=== PATIENT | male | born 1975 | race Caucasian/White ===

== ENCOUNTER 2024-01-10 11:55 | Inpatient (IN) | payer SELFPAY ==
[2024-01-10] VITALS (46 sets, daily range): BP systolic 103–138; BP diastolic 66–83; PULSE 81–110; RESP 12–37; TEMP 36.6–36.8; O2SAT 91–108; BMI 19.9; BMI 19.4
--- NOTE | 2024-01-10 12:08 | XR_ITS ---
The [address] [address] Patient Name: MEHNAZ CAMACHO MRN: [id number] date: 1975 Sex: M Assigned Patient Location: ER Current Patient Location: ER Accession/Order Number: [id number] Exam Date: 01/10/2024 12:45 Report Date: 01/10/2024 13:16 At the request of: AMPARO CHARLES Procedure: XR chest 1V EXAMINATION: XR chest 1V 01/10/2024 10:15 AM PST HISTORY: SOB TECHNIQUE: Single frontal view of the chest acquired. COMPARISONS: None. FINDINGS: Lines/tubes/other: None. Heart and mediastinum: The heart and the mediastinum are within normal limits for technique. Bones: No acute osseous abnormality. Lungs: Patchy right basilar opacification and streaky left basilar opacification. No pulmonary edema. Pleura: There is no significant pleural effusion or pneumothorax. Other: None. XR/XR chest 1V IMPRESSION: Bibasilar opacification suspect for aspiration and/or pneumonia. Recommend follow-up radiograph in 4-6 weeks, allowing sufficient time after appropriate therapy to evaluate for radiographic improvement/resolution. Electronically authenticated by: RAYMUNDO BELLO Date: 01/10/2024 13:16
--- NOTE | 2024-01-10 12:08 | ECG_ITS ---
The [facility] Test Date: 2024-01-10 Pat Name: MEHNAZ CAMACHO Department: Room: - Gender: Male Personal Security Specialist: : 1975 Requested By: Cristóbal Reyna Order Number: [id number] Reading MD: MARY GEORGES Measurements Intervals Coker Rate: 84 P: 110 AL: 158 QRS: 94 QRSD: 88 T: 94 QT: 368 QTc: 409 Interpretive Statements 1100 Sinus rhythm 4068 Nonspecific Twave abnormality 7102 Moderate right axis deviation 0101 Possible arm leads reversed, check lead requested 9130 borderline ECG Electronically Signed On 01-11-2024 6:38:50 EST by MARY GEORGES
--- NOTE | 2024-01-10 12:09 | CT_ITS ---
[address] [address] Patient Name: MEHNAZ CAMACHO MRN: [id number] date: 1975 Sex: M Assigned Patient Location: ER Current Patient Location: Accession/Order Number: [id number] Exam Date: 01/10/2024 12:45 Report Date: 01/10/2024 13:04 At the request of: AMPARO CHARLES Procedure: CT head/brain wo con EXAM: CT head/brain wo con CLINICAL INDICATION: fall COMPARISON: None TECHNIQUE: Axial CT images of the brain were obtained without contrast. Coronal and sagittal reformats were obtained. Dose reduction techniques were achieved by using automated exposure control and/or adjustment of mA and/or kV according to patient size and/or use of iterative reconstruction technique. FINDINGS: No intracranial hemorrhage, extra-axial fluid collection, hydrocephalus, midline shift, or acute infarction. No other mass effect. Patent basal cisterns. No calvarial fracture. Normal soft tissues. [id number] scattered paranasal sinus mucosal thickening. Small left mastoid effusion. CT/CT head/brain wo con IMPRESSION: No acute intracranial process. Electronically authenticated by: YURIY DOMINGUEZ Date: 01/10/2024 13:04
--- NOTE | 2024-01-10 12:09 | CT_ITS ---
The [address] [address] Patient Name: MEHNAZ CAMACHO MRN: [id number] date: 1975 Sex: M Assigned Patient Location: ER Current Patient Location: ER Accession/Order Number: [id number] Exam Date: 01/10/2024 12:45 Report Date: 01/10/2024 13:05 At the request of: AMPARO CHARLES Procedure: CT cervical spine wo con EXAM: CT cervical spine wo con HISTORY: fall, generalized malaise, bruising to right side of face COMPARISON: CT head performed contemporaneously reported separately. TECHNIQUE: Axial noncontrast CT imaging of the cervical spine was performed with coronal and sagittal reformats. This CT exam was performed using one or more of the following dose reduction techniques: Automated exposure control, adjustment of the MA and/or kV according to patient size, or use of iterative reconstruction technique. FINDINGS: Alignment: No substantial subluxation. Vertebrae: Vertebral body heights are maintained. No fracture. Craniocervical junction: No focal abnormality. Degenerative changes: Small central protrusion at C4-C5 with mild canal stenosis. Otherwise no substantial degenerative change of the cervical spine. Additional Comments: Visualized portion of the upper lungs are clear. Mild atherosclerotic change. CT/CT cervical spine wo con IMPRESSION: No acute fracture or traumatic malalignment of the cervical spine. Electronically authenticated by: DALE SANTIAGO Date: 01/10/2024 13:05
--- NOTE | 2024-01-10 12:11 | ED_ITS ---
HPI - General Adult General Chief complaint: Weakness Stated complaint: WEAKNESS, ILLNESS Time Seen by Provider: 01/10/24 11:57 History of Present Illness HPI narrative: 49-year-old male presents for generalized weakness. He states that his mother, with whom he lives, wanted him checked out. He apparently has been falling recently and he is a daily alcohol drinker and has not had anything to drink since yesterday. No history of seizure or fever. He does not seem to have any specific complaints. Paramedics noted that he had abrasions on his arms and his face of varying ages. Related Data Home Medications Medication Instructions Recorded Confirmed verapamil 240 mg tablet,extended 240 mg PO .qd 01/10/24 01/10/24 release Allergies Allergy/AdvReac Type Severity Reaction Status Date / Time No Known Drug Allergies Allergy Verified 01/10/24 12:02 Review of Systems ROS Narrative A ten point review of systems is negative except as noted above. PFSH PFSH Social History Smoking status: Current every day smoker Exam Narrative Exam Narrative: Nurses note and vital signs reviewed and patient is not hypoxic. General: The patient appears well and in no apparent distress. Patient is resting comfortably on cart. Skin: Warm, dry, no pallor noted. There is no rash noted. Head: Normocephalic, large abrasion on the right side of his head lateral to the eye. Eye: Normal conjunctiva, no drainage, sclera anicteric Ears, Nose, Mouth, and Throat: oral mucosa is slightly dry. Nares patent. Cardiovascular: Regular Rate and Rhythm Respiratory: Mildly tachypneic, breath sounds are equal Back: non-tender GI: Soft and nontender and nondistended Musculoskeletal: He has abrasions on his extremities, particularly his arms. All joints seem to have full range of motion Neurological: A&O x4, normal speech Psychiatric: Cooperative Constitutional Vital Signs, click to edit/add: Last Vital Signs Temp 98.3 F 01/10/24 12:04 Pulse 93 H 01/10/24 12:04 Resp 32 H 01/10/24 12:04 BP 134/82 01/10/24 12:04 Pulse Ox 92 L 01/10/24 12:04 O2 Del Method Room Air 01/10/24 12:04 Course Vital Signs Vital signs: Vital Signs Temperature 98.3 F 01/10/24 12:04 Pulse Rate 93 H 01/10/24 12:04 Respiratory Rate 32 H 01/10/24 12:04 Blood Pressure 134/82 01/10/24 12:04 Pulse Oximetry 92 L 01/10/24 12:04 Oxygen Delivery Method Room Air 01/10/24 12:04 Temperature 98.3 F 01/10/24 12:04 Pulse Rate 93 H 01/10/24 12:04 Respiratory Rate 32 H 01/10/24 12:04 Blood Pressure 134/82 01/10/24 12:04 Pulse Oximetry 92 L 01/10/24 12:04 Oxygen Delivery Method Room Air 01/10/24 12:04 Medical Decision Making MDM Narrative Medical decision making narrative: The patient is found to be hyponatremic with a positive COVID test. Chest x-ray is also suggestive of aspiration. Cultures are obtained as well as lactic acid level and procalcitonin and after discussing the case with Dr. Harrington we have elected to place the patient on Zosyn. He is being admitted and findings are discussed with the patient. He is at risk for alcohol withdrawal. Differential Diagnosis Differential Diagnosis: Acute kidney injury, hyponatremia, alcoholism Lab Data Lab results reviewed: Yes I reviewed the patient's lab results Labs: Lab Results 01/10/24 01/10/24 Range/Units 12:10 12:15 WBC 12.1 H (4.0-11.0) 10^3/uL RBC 3.87 L (4.70-6.10) 10^6/uL Hgb 13.2 L (14.0-18.0) g/dL Hct 35.2 L (42.0-54.0) % MCV 91.0 (80.0-94.0) fL MCH 34.1 H (25.9-34.0) pg MCHC 37.5 H (29.9-35.2) g/dL RDW 10.9 L (11.0-15.0) % Plt Count 211 (150-450) 10^3/uL MPV 10.9 (9.5-13.5) fL Neut % (Auto) 82.9 H (43.0-75.0) % Lymph % (Auto) 6.7 L (20.5-60.0) % Bulloch % (Auto) 9.4 (1.7-12.0) % Eos % (Auto) 0.1 L (0.9-7.0) % Baso % (Auto) 0.2 (0.2-2.0) % Neut # (Auto) 10.0 H (1.4-6.5) 10^3/uL Lymph # (Auto) 0.8 L (1.2-3.8) 10^3/uL Bulloch # (Auto) 1.1 H (0.3-0.8) 10^3/uL Eos # (Auto) 0.0 (0.0-0.7) 10^3/uL Baso # (Auto) 0.0 (0.0-0.1) 10^3/uL Abs Immat Gran (auto) 0.08 H (0.00-0.03) 10^3/uL Imm/Tot Granulo (auto) 0.7 H (0.0-0.5) % Sodium 115 L* (136-145) mmol/L Potassium 2.6 L* (3.5-5.1) mmol/L Chloride 78 L* (98-107) mmol/L Carbon Dioxide 25.9 (21.0-32.0) mmol/L Anion Gap 13.7 BUN 2.0 L (7.0-18.0) mg/dL Creatinine 0.40 L (0.70-1.30) mg/dL Est GFR ( Amer) >60 (>=60) Est GFR (Non-Af Amer) >60 (>=60) BUN/Creatinine Ratio 5.0 Glucose 75 (74-106) mg/dL Calcium 7.9 L (8.5-10.1) mg/dL Total Bilirubin 1.0 (0.2-1.0) mg/dL Direct Bilirubin 0.4 H (0.0-0.2) mg/dL AST 135 H (15-37) U/L ALT 60 (16-63) U/L Alkaline Phosphatase 108 (46-116) U/L Troponin I High Sens 13.9 (4.0-76.1) pg/mL Total Protein 5.9 L (6.4-8.2) g/dL Albumin 2.2 L (3.4-5.0) g/dL Globulin 3.7 g/dL Albumin/Globulin Ratio 0.6 Amylase 34 (25-115) U/L Lipase 25.0 (16.0-77.0) U/L Ethanol Quant <3 mg/dL Influenza Type A Ag Negative Influenza Type B Ag Negative SARS-CoV-2 Ag (CV2AG) Positive A (NEGATIVE) Imaging Data Chest x-ray: Radiologist's impression: ITS Impressions Chest X-Ray 01/10/24 12:08 IMPRESSION: Bibasilar opacification suspect for aspiration and/or pneumonia. Recommend follow-up radiograph in 4-6 weeks, allowing sufficient time after appropriate therapy to evaluate for radiographic improvement/resolution. Electronically authenticated by: RAYMUNDO BELLO Date: 01/10/2024 13:[address] 01/10/24 12:09 IMPRESSION: No acute fracture or traumatic malalignment of the cervical spine. Electronically authenticated by: DALE SANTIAGO Date: 01/10/2024 13:[address] 01/10/24 12:09 IMPRESSION: No acute intracranial process. Electronically authenticated by: YURIY DOMINGUEZ Date: 01/10/2024 13:04 ECG Data Attestation: I personally reviewed and interpreted this ECG as follows: (EKG on my interpretation shows sinus rhythm with a rate of 84.) Critical Care Time Critical Care Time Critical Care Time: Yes Total Critical Care Time: 40 Attestation: Due to the high probability of sudden and clinically significant deterioration in the patient's condition he/she required the highest level of my preparedness to intervene urgently I provided critical care time including documentation time, medication orders and management, reevaluation, vital sign assessment, ordering and reviewing of lab tests, ordering and reviewing of x-ray studies, and admission orders. Aggregate critical care time is 40 minutes including only time during which I was engaged in work directly related to his/her care and did not include time spent treating other patients simultaneously. Discharge Plan Discharge Chief Complaint: Weakness Clinical Impression: COVID-19, Hyponatremia, Pneumonia Patient Disposition: Admitted As Inpatient Time of Disposition Decision: 13:33 Condition: Fair
[2024-01-10 12:47] LABS: Alanine Aminotransferase 60 U/L (16-63); Albumin Globulin Ratio 0.6; Albumin Level 2.2 g/dL (3.4-5.0); Alkaline Phosphatase 108 U/L (46-116); Amylase 34 U/L (25-115); Aspartate Amino Transferase 135 U/L (15-37); Bilirubin Direct 0.4 mg/dL (0.0-0.2); Globulin 3.7 g/dL; Total Protein 5.9 g/dL (6.4-8.2)
[2024-01-10 12:49] LABS: Ethanol <3 mg/dL
[2024-01-10 12:50] LABS: Influenza Virus A Antigen Negative; Influenza Virus B Antigen Negative
[2024-01-10 12:51] LABS: Internal Control Within Normal Limits; SARS-CoV-2 Ag POSITIVE (NEGATIVE)
[2024-01-10 13:00] LABS: Basophils Percent Auto 0.2 % (0.2-2.0); Eosinophils Percent Auto 0.1 % (0.9-7.0); Hematocrit 35.2 % (42.0-54.0); Hemoglobin 13.2 g/dL (14.0-18.0); Immature Granulocytes Abs Auto 0.08 10^3/uL (0.00-0.03); Immature Granulocytes Pct Auto 0.7 % (0.0-0.5); Lymphocytes Absolute Auto 0.8 10^3/uL (1.2-3.8); Lymphocytes Percent Auto 6.7 % (20.5-60.0); Mean Corpuscular HGB Conc 37.5 g/dL (29.9-35.2); Mean Corpuscular Hemoglobin 34.1 pg (25.9-34.0); Mean Platelet Volume 10.9 fL (9.5-13.5); Monocytes Absolute Auto 1.1 10^3/uL (0.3-0.8); Monocytes Percent Auto 9.4 % (1.7-12.0); Neutrophils Percent Auto 82.9 % (43.0-75.0); Platelet Count 211 10^3/uL (150-450); Red Blood Count 3.87 10^6/uL (4.70-6.10); Red Cell Distribution Width 10.9 % (11.0-15.0); White Blood Count 12.1 10^3/uL (4.0-11.0)
[2024-01-10 13:10] LABS: Troponin I High Sensitivity 13.9 pg/mL (4.0-76.1)
[2024-01-10 13:12] LABS: Anion Gap 13.7; Calcium 7.9 mg/dL (8.5-10.1); Carbon Dioxide 25.9 mmol/L (21.0-32.0); Estimated GFR (African America >60 (>=60); Estimated GFR (Non-African Ame >60 (>=60); Glucose 75 mg/dL (74-106)
[2024-01-10 13:13] LABS: Chloride 78 mmol/L (98-107); Potassium 2.6 mmol/L (3.5-5.1); Sodium 115 mmol/L (136-145)
[2024-01-10] MEDS: 0.9 % SODIUM CHLORIDE 1,000 ML 1000 ML IV (13:31)
[2024-01-10] MEDS: ADACEL DIPH,PERTUSS(ACELL),TET VAC/PF 0.5 ML ADULT SYRINGE IM (13:33)
[2024-01-10 13:55] LABS: Lactate/Lactic Acid 1.4 mmol/L (0.4-2.0)
[2024-01-10 14:03] LABS: Magnesium 1.9 mg/dL (1.8-2.4)
[2024-01-10 14:04] LABS: Sodium Urine Random <5 mmol/L (30-90)
[2024-01-10 14:08] LABS: INR 1.03; Partial Thromboplastin Time 29.9 sec (22.3-36.2); Prothrombin Time 10.9 sec (9.0-11.6)
[2024-01-10] MEDS: PIPERACILLIN SODIUM/TAZOBACTAM 3.375 GM in 0.9 % SODIUM CHLORIDE 50 ML IV ×2 (14:10→21:05)
[2024-01-10 14:12] LABS: Amphetamine Screen Urine NEGATIVE (NEGATIVE); Barbiturates Screen Urine NEGATIVE (NEGATIVE); Benzodiazepines Screen Urine NEGATIVE (NEGATIVE); Buprenorphine Screen Urine NEGATIVE (NEGATIVE); Cannabinoid Screen Urine NEGATIVE (NEGATIVE); Cocaine Screen Urine NEGATIVE (NEGATIVE); Methadone Screen Urine NEGATIVE (NEGATIVE); Methamphetamines Screen Urine NEGATIVE (NEGATIVE); Opiate Screen Urine NEGATIVE (NEGATIVE); Oxycodone Screen Urine NEGATIVE (NEGATIVE); Phencyclidine Screen Urine NEGATIVE (NEGATIVE); Tricyclic Antidepressant Urine NEGATIVE (NEGATIVE)
[2024-01-10] MEDS: BACITRACIN OINTMENT 28.4 GM TUBE 1 APPLIC TOPICAL (14:34)
[2024-01-10] MEDS: HEPARIN SODIUM (PORCINE) 5,000 UNIT/ML VIAL 5000 UNIT SUBQ ×2 (14:34→21:06)
[2024-01-10] MEDS: 0.9 % SODIUM CHLORIDE 1,000 ML 75 ML IV (14:35)
[2024-01-10] MEDS: POTASSIUM CHLORIDE 40 MEQ in 0.9 % SODIUM CHLORIDE 250 ML 67.5 MEQ IV (14:46)
[2024-01-10] MEDS: POTASSIUM CHLORIDE 10 MEQ ER TABLET 40 MEQ PO ×3 (14:46→23:56)
[2024-01-10 14:48] LABS: Thyroid Stimulating Hormone 0.179 uIU/mL (0.358-3.740)
[2024-01-10 14:51] LABS: PROCALCITONIN 0.61 ng/mL (0.00-0.50)
[2024-01-10 15:09] LABS: Bilirubin Urine NEGATIVE (NEGATIVE); Blood Urine NEGATIVE (NEGATIVE); Clarity Urine CLEAR (CLEAR); Color Urine LT. YELLOW (YELLOW); Glucose Urine UA NEGATIVE (NEGATIVE); Ketones Urine >=80 mg/dL (NEGATIVE); Leukocyte Esterase Urine NEGATIVE (NEGATIVE); Nitrite Urine NEGATIVE (NEGATIVE); Protein Urine NEGATIVE (NEG/TRACE); Specific Gravity Urine <=1.005 (1.005-1.025); Urobilinogen Urine 0.2 EU/dL (0.2-1.0); pH Urine 6.5 (5.0-9.0)
--- NOTE | 2024-01-10 15:32 | NUTR.NU ---
Pt admitted 01/10/24 on regular diet. Dietitian consult ordered; nutrition assessment started but not all info available at this time. Nursing is currently w/pt for admission assessment. Will plan to see pt tomorrow, 01/11/24, and complete nutritional assessment.
[2024-01-10 15:39] LABS: Bacteria Urine NONE SEEN #/HPF (NONE SEEN); Cast Seen? NONE SEEN #/LPF (NONE SEEN); Crystals Seen? None Seen #/HPF (None Seen); Mucus Urine NONE SEEN (NONE SEEN); RBC Urine 0-2 #/HPF (0-2); Squamous Epithelial Cell Urine NONE SEEN #/LPF (NONE/RARE); WBC Urine NONE SEEN #/HPF (NONE SEEN)
--- NOTE | 2024-01-10 15:44 | P.HP_ITS ---
<Statement entered by Shaikh Juany MD - 01/10/24 18:42> This documentation has been reviewed and approved.Patient was not seen and examined. Case d/w Lis. - Hyponatremia -hypokalemia -aspiration pna. -alcohol abuse disorder -htn Gentle IVF, closely monitor serum sodium and potassium. Monitor for alcohol withdrawal. On librium and ativan as needed. H&P: HPI History of Present Illness Chief complaint: WEAKNESS, ILLNESS Narrative: 01/10/24 1500 This is a 49-year-old male patient with a past medical history as outlined below including depression and anxiety, hypertension, and long-term alcohol and tobacco abuse; who presented to the ED complaining of 1 week course of cough, weakness, and falls. The patient reports onset of cough that was very persistent approximately 10 days ago. He denies any fever or chills. He complains of some nausea and dry heaves but denies vomiting. His mother who is at the bedside, reported that his appetite has been much worse than usual over the last week and he has had hardly any oral intake of food or fluid. The patient has contusions all over his face and arms and legs. He denies frequent falling but it is unclear what these contusions are from. His mother did note that in the last 12 hours he has become so weak that he was unable to stand from the toilet, or get up off the ground after a fall suffered last night. He also seemed a little confused today which is not his baseline. She noted that his urine was rust colored today. Workup in the ED revealed COVID-19 infection, severe electrolyte derangements (sodium 115, potassium 2.6, chloride 78), mild liver enzyme elevation (total bili 0.4, AST 135, ALT and alk phos WNL), leukocytosis (12.1). Chest x-ray revealed bilateral lower lobe consolidations suspicious for aspiration versus infectious infiltrate. No fever, hypotension, or hypoxia. He is being admitted as an inpatient to the hospitalist service for bilateral lower lobe pneumonia, suspected aspiration versus secondary bacterial after COVID-19 infection, dehydration, and severe electrolyte derangements. At the time of my exam the patient is resting quietly in bed. He does not appear to be in any respiratory distress but is mildly tachypneic. He is able to complete full sentences. He is A&O x 3, but mildly lethargic and has poor recall of recent events. Of note: The patient admits to at least a 12 pack/day alcohol intake for many years. Since he developed alcohol dependence he has never been through any withdrawal as he has never stopped drinking daily. He also smokes 1 and half to 2 packs of cigarettes per day. He reports no previous history of liver enzyme elevation on outpatient labs, but we are unable to see any outpatient labs at this time. He is at high risk for delirium tremens and seizures. We will initiate a Librium taper along with as needed Ativan dosing for alcohol. Review of Systems ROS Status of ROS 10 or more systems reviewed and unremark able except as noted in history and below PFSH PFS Medical History Chronic back pain ?M54.9 - Dorsalgia, unspecified (ICD-10) ?G89.29 - Other chronic pain (ICD-10) H/O back injury ?Z87.828 - Personal history of other (healed) physical injury and trauma (ICD-10) Tobacco dependence ?F17.200 - Nicotine dependence, unspecified, uncomplicated (ICD-10) Anxiety ?F41.9 - Anxiety disorder, unspecified (ICD-10) HTN (hypertension) ?I10 - Essential (primary) hypertension (ICD-10) ETOH abuse ?F10.10 - Alcohol abuse, uncomplicated (ICD-10) Social History (Updated 01/10/24 @ 15:30 by Ginette Aburto) Within the past year, how often did you have a drink containing alcohol: 4 or more times a week Within the past year, how many standard drinks containing alcohol did you have on a typical day: 10 or more Within the past year, how often did you have six or more drinks on one occasion: daily or almost daily Total score: 12 Score interpretation: A score of 4 or more indicates drinking is likely to affect patient's safety. Smoking status: Current every day smoker What tobacco products do you use: cigarettes Packs per day: 2 Meds Home Medications and Allergies Home Medications Medication Instructions Recorded Confirmed Type buspirone 10 mg tablet 10 mg PO DAILY 01/10/24 01/10/24 History gabapentin 100 mg capsule 100 mg PO .qhs 01/10/24 01/10/24 History gabapentin 300 mg capsule 300 mg PO QAM 01/10/24 01/10/24 History verapamil 240 mg tablet,extended 240 mg PO .qd 01/10/24 01/10/24 History release Allergies Allergy/AdvReac Type Severity Reaction Status Date / Time No Known Drug Allergies Allergy Verified 01/10/24 12:02 Exam Constitutional Vital Signs, click to edit/add: Last Vital Signs Temp 98 F 01/10/24 14:02 Pulse 100 H 01/10/24 15:10 Resp 25 H 01/10/24 15:10 BP 127/79 01/10/24 14:25 Pulse Ox 94 L 01/10/24 15:10 O2 Del Method Room Air 01/10/24 14:18 Common normals: no apparent distress, oriented x3, alert and well nourished General appearance: cooperative Orientation/consciousness: Yes awake HENMT Common normals: normocephalic, hearing grossly normal bilaterally and external nose normal Eye Common normals: PERRL, EOMs intact bilaterally, conjunctivae normal and no scleral icterus Alignment: alignment normal Neck & C-Spine Common normals: full ROM, supple and no JVD Chest Common normals: inspection of chest normal Chest: symmetrical chest wall rise Respiratory Common normals: normal respiratory effort, no retractions, no use of accessory muscles and clear to auscultation bilaterally Effort & inspection: able to speak in complete sentences Auscultation: diminished lung sounds (BLL) Cardio Common normals: no JVD, regular rate, regular rhythm, S1 normal heart sound, S2 normal heart sound, no gallops, no clicks, no murmurs, no rub and peripheral pulses 2+ throughout GI Common normals: Normal to inspection, nondistended, normoactive bowel sounds p resent, soft to palpation, non-tender, no hepatosplenomegaly, no masses and no bruits Palpation: soft and no hepatosplenomegaly Bladder/kidney exam: bladder normal to palpation Back & Pelvis Common normals: thoracic and lumbar spine normal to inspection Extremity Common normals: normal capillary refill and no pedal edema General: normal exam except as noted; no clubbing and no cyanosis Neuro Oh Coma Scale: GCS not evaluated Common normals: CN's II-XII intact bilaterally, moves all extremities, no focal motor deficits and no sensory deficits noted Speech: speech normal Motor exam: strength 5/5 throughout Psych Common normals: mental status grossly normal, thought process normal and activity/motor behavior normal Mood and affect: flat affect Insight: fair Judgement: fair Results Labs Labs: Short CBC 01/10/24 Range/Units 12:15 WBC 12.1 H (4.0-11.0) 10^3/uL Hgb 13.2 L (14.0-18.0) g/dL Hct 35.2 L (42.0-54.0) % Plt Count 211 (150-450) 10^3/uL BMP 01/10/24 12:15 Sodium 115 L* Potassium 2.6 L* Chloride 78 L* Carbon Dioxide 25.9 BUN 2.0 L Creatinine 0.40 L Glucose 75 Calcium 7.9 L Liver Function 01/10/24 Range/Units 12:15 Total Bilirubin 1.0 (0.2-1.0) mg/dL Direct Bilirubin 0.4 H (0.0-0.2) mg/dL AST 135 H (15-37) U/L ALT 60 (16-63) U/L Alkaline Phosphatase 108 (46-116) U/L Albumin 2.2 L (3.4-5.0) g/dL Urine 01/10/24 Range/Units 11:45 Urine Color Lt. yellow (YELLOW) Urine Clarity Clear (CLEAR) Urine pH 6.5 (5.0-9.0) Ur Specific Antelope <=1.005 A (1.005-1.025) Urine Protein Negative (NEG/TRACE) mg/dL Urine Glucose (UA) Negative (NEGATIVE) mg/dL Pulse Oximetry Attestation: I have reviewed the pertinent pulse oximetry results. ECG Interpretation: Sinus rhythm Nonspecific T wave abnormality Moderate right axis deviation Possible arm leads reversed, check lead requested Borderline ECG Compared to ECG from 12/03/2018 at 1654, Right axis deviation now present Sinus tachycardia no longer present Imaging Chest x-ray: Attestation: I have reviewed the pertinent imaging results. Radiologist's impression: IMPRESSION: Bibasilar opacification suspect for aspiration and/or pneumonia. Recommend follow-up radiograph in 4-6 weeks, allowing sufficient time after appropriate therapy to evaluate for radiographic improvement/resolution. CT Cervical Spine: Attestation: I have reviewed the pertinent imaging results. Radiologist's impression: IMPRESSION: No acute fracture or traumatic malalignment of the cervical spine. CT scan - head: Attestation: I have reviewed the pertinent imaging results. Radiologist's impression: IMPRESSION: No acute intracranial process. Assessment and Plan Assessment and Plan (1) Hyponatremia: Assessment and Plan: ACUTE * Adm Inpatient * Na 115 in ED - 2/2 dehydration/volume depletion/chronic EtOH abuse * r/o other possible etiologies: * Check TSH, Serum osmolality, Urine random Na and osmolality, Cortisol in AM * CT head negative - head trauma is not a suspected source * 1 Liter NS bolus given in AD * Gentle maintenance IVF at 75ml/hr * Correction goal: No more than 0.5 mEq/L/hr to avoid ODS * Check BMP q4h x 3 overnight * Tele monitoring * Daily CMP (2) Hypokalemia: Assessment and Plan: ACUTE * K+ 2.6 in ED - 2/2 dehydration/chronic EtOH abuse * KCL 40 mEq IVPB x 1 now * KCL 40 mEq PO q6h x 3 doses * BMP q4h x 3 and CMP daily * Mag Lvl WNL in ED. Recheck in AM * Check Phos level in AM * Tele monitoring (3) Dehydration: Assessment and Plan: ACUTE * 2/2 Acute COVID 19 illness/pneumonia/chronic EtOH abuse * IVF as above for gentle hydration * CMP daily (4) COVID-19: Assessment and Plan: ACUTE * Cough onset ~ 10 days ago, improved * No pleuritic CP, SOB, hypoxia * Supportive care (5) Pneumonia: Assessment and Plan: ACUTE * Suspect aspiration vs secondary bacterial infection w/ leukocytosis noted on labs * Rocephin/azithromycin given in ED for CAP coverage * Broaden to Zosyn IVPB d/t clinical concern for aspiration PNA in setting of chronic intoxication and weakness. * Pt does not remember an aspiration event * Duonebs q4h prn * Guaifenesin BID, Tessalon Perles PRN * O2 if needed to keep sats > 90% * CBC daily Qualifiers: Aspiration pneumonia type: unspecified Laterality: bilateral Lung location: lower lobe of lung Pneumonia type: aspiration pneumonia Qualified Code(s): J69.0 - Pneumonitis due to inhalation of food and vomit (6) Abnormal liver enzymes: Assessment and Plan: ACUTE * Mild bili (0.4) and AST (135) elevation. * ALT, Alk Phos WNL * Suspect 2/2 chronic ETOH abuse * No c/o vomiting, abdominal pain * Normal amylase/lipase * Consider RUQ US pending clinical course * CMP daily (7) Frequent falls: Assessment and Plan: ACUTE ON CHRONIC * Suspect chronic falls d/t intoxication, but increased weakness over the last 24 hrs * PT/OT consults * Up with assist at all times (8) Tobacco dependence: Assessment and Plan: CHRONIC * 2 PPD tobacco abuse hx * Nicoderm 21 mg patch daily (9) ETOH abuse: Assessment and Plan: CHRONIC * 12 pack per day + daily EtOH use * Never has stopped drinking, so withdrawal symptoms unknown * High risk for DTs/seizures * Start scheduled librium taper * Initiate CIWA/EtOH w/d protocol * Ativan 2mg PO q2h PRN per EtOH w/d protocol/CIWA scores * Seizure precautions * Likely source of electrolyte disturbances, at least in part * Check ammonia level w/ next lab draw (10) Anxiety: Assessment and Plan: CHRONIC * w/ depression * Continue home buspar (11) HTN (hypertension): Assessment and Plan: CHRONIC * Continue home Verapamil - hold for SBP < 100 or HR < 55 (12) Chronic back pain: Assessment and Plan: CHRONIC * Continue home gabapentin
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
--- NOTE | 2024-01-10 16:25 | SWNOTE1 ---
ANDREA met with pt and pt's mother in room. Pt lives alone and his mother lives a few blocks away. SW asked pt how much he drinks, pt voiced daily and he is not sure how much. SW asked if pt had any interest in going to alcohol rehab, he voiced no. SW asked about AA meetings and he voiced no. Pt does not work. Pt fell asleep, SW spoke with his mother. He has not worked in 2 years. Pt's mother voiced others call her an enabler. She assist pt with groceries, getting to places, medications, and paying various other things. She voiced he does not want any assistance/resources at this time. SW let pt's mother know to reach out anytme for resources. SW asked if he was self-pay and she voiced he was. She has HCAP forms but has questions, SW to reach out to financial to have them come in tomorrow. Also assist with medicaid [place]. SW to follow as needed. ANDREA sent email to Dickson moy.
[2024-01-10] MEDS: NICOTINE 21 MG PATCH.TD24 TD (16:48)
[2024-01-10] MEDS: THIAMINE MONONITRATE (VIT B1) 100 MG TABLET PO (16:48)
[2024-01-10] MEDS: FOLIC ACID 1 MG TABLET PO (16:49)
[2024-01-10] MEDS: MULTIVITAMIN TABLET 1 TAB PO (16:50)
[2024-01-10 17:21] LABS: Ammonia 15 umol/L (11-32)
[2024-01-10 17:39] LABS: Anion Gap 15.7; BUN Creatinine Ratio 8.1; Calcium 7.5 mg/dL (8.5-10.1); Carbon Dioxide 22.2 mmol/L (21.0-32.0); Chloride 91 mmol/L (98-107); Estimated GFR (African America >60 (>=60); Estimated GFR (Non-African Ame >60 (>=60); Glucose 61 mg/dL (74-106); Sodium 126 mmol/L (136-145)
[2024-01-10 17:47] LABS: Potassium 2.9 mmol/L (3.5-5.1)
--- NOTE | 2024-01-10 18:12 | PC.NURSE ---
pt involuntary of large liquid brown stool. linens changed, gown changed, bath provided. assisted back to bed from commode with 2 assist. bed alarm on .
[2024-01-10] MEDS: SODIUM CHLORIDE 0.45 % 1,000 ML 75 ML IV (18:32)
[2024-01-10] MEDS: CLORDIAZEPOXIDE HCl 25 MG CAPSULE 50 MG PO (21:05)
[2024-01-10] MEDS: GUAIFENESIN 600 MG TAB.ER.12H PO (21:05)
[2024-01-10 22:10] LABS: Anion Gap 13.3; BUN Creatinine Ratio 11.9; Calcium 7.7 mg/dL (8.5-10.1); Carbon Dioxide 22.4 mmol/L (21.0-32.0); Chloride 92 mmol/L (98-107); Estimated GFR (African America >60 (>=60); Estimated GFR (Non-African Ame >60 (>=60); Glucose 92 mg/dL (74-106); Sodium 125 mmol/L (136-145)
[2024-01-10 22:20] LABS: Potassium 2.7 mmol/L (3.5-5.1)
[2024-01-10] MEDS: POTASSIUM CHLORIDE IN WATER 10 MEQ/100 ML PIGGYBACK 100 MEQ IV (23:56)
[2024-01-11] VITALS (49 sets, daily range): BP systolic 95–127; BP diastolic 60–82; PULSE 82–116; RESP 22–44; TEMP 36.6–37.6; O2SAT 91–96
[2024-01-11] MEDS: POTASSIUM CHLORIDE IN WATER 10 MEQ/100 ML PIGGYBACK 100 MEQ IV (01:08)
[2024-01-11 01:45] LABS: Anion Gap 14.7; BUN Creatinine Ratio 8.3; Calcium 7.6 mg/dL (8.5-10.1); Carbon Dioxide 23.1 mmol/L (21.0-32.0); Chloride 94 mmol/L (98-107); Estimated GFR (African America >60 (>=60); Estimated GFR (Non-African Ame >60 (>=60); Glucose 80 mg/dL (74-106); Sodium 129 mmol/L (136-145)
[2024-01-11 01:55] LABS: Potassium 2.8 mmol/L (3.5-5.1)
[2024-01-11] MEDS: POTASSIUM CHLORIDE 10 MEQ ER TABLET 40 MEQ PO (03:44)
[2024-01-11] MEDS: CLORDIAZEPOXIDE HCl 25 MG CAPSULE 50 MG PO ×3 (05:09→21:15)
[2024-01-11] MEDS: HEPARIN SODIUM (PORCINE) 5,000 UNIT/ML VIAL 5000 UNIT SUBQ ×3 (05:09→21:15)
[2024-01-11] MEDS: PIPERACILLIN SODIUM/TAZOBACTAM 3.375 GM in 0.9 % SODIUM CHLORIDE 50 ML IV ×3 (05:09→21:16)
[2024-01-11 05:21] LABS: Basophils Percent Auto 0.2 % (0.2-2.0); Eosinophils Percent Auto 0.1 % (0.9-7.0); Hematocrit 34.8 % (42.0-54.0); Hemoglobin 12.6 g/dL (14.0-18.0); Immature Granulocytes Abs Auto 0.14 10^3/uL (0.00-0.03); Lymphocytes Absolute Auto 1.5 10^3/uL (1.2-3.8); Lymphocytes Percent Auto 10.7 % (20.5-60.0); Mean Corpuscular HGB Conc 36.2 g/dL (29.9-35.2); Mean Corpuscular Hemoglobin 33.9 pg (25.9-34.0); Mean Corpuscular Volume 93.5 fL (80.0-94.0); Mean Platelet Volume 10.2 fL (9.5-13.5); Monocytes Percent Auto 7.4 % (1.7-12.0); Neutrophils Absolute Auto 11.2 10^3/uL (1.4-6.5); Neutrophils Percent Auto 80.6 % (43.0-75.0); Platelet Count 270 10^3/uL (150-450); Red Blood Count 3.72 10^6/uL (4.70-6.10); Red Cell Distribution Width 11.1 % (11.0-15.0); White Blood Count 13.9 10^3/uL (4.0-11.0)
[2024-01-11 05:50] LABS: Alanine Aminotransferase 56 U/L (16-63); Albumin Globulin Ratio 0.6; Alkaline Phosphatase 99 U/L (46-116); Anion Gap 14.6; Aspartate Amino Transferase 107 U/L (15-37); Bilirubin Total 0.7 mg/dL (0.2-1.0); Calcium 7.8 mg/dL (8.5-10.1); Carbon Dioxide 22.4 mmol/L (21.0-32.0); Chloride 94 mmol/L (98-107); Estimated GFR (African America >60 (>=60); Estimated GFR (Non-African Ame >60 (>=60); Globulin 3.6 g/dL; Glucose 82 mg/dL (74-106); Magnesium 2.1 mg/dL (1.8-2.4); Phosphorus 2.5 mg/dL (2.6-4.7); Sodium 128 mmol/L (136-145); Total Protein 5.6 g/dL (6.4-8.2)
[2024-01-11] MEDS: SODIUM CHLORIDE 0.45 % 1,000 ML 75 ML IV ×2 (08:06→20:49)
[2024-01-11] MEDS: POTASSIUM CHLORIDE 10 MEQ ER TABLET 20 MEQ PO ×2 (08:27→20:51)
[2024-01-11] MEDS: THIAMINE MONONITRATE (VIT B1) 100 MG TABLET PO (08:27)
[2024-01-11] MEDS: GUAIFENESIN 600 MG TAB.ER.12H PO ×2 (08:28→20:50)
[2024-01-11] MEDS: FOLIC ACID 1 MG TABLET PO (08:28)
[2024-01-11] MEDS: MULTIVITAMIN TABLET 1 TAB PO (08:28)
--- NOTE | 2024-01-11 08:31 | CM.NOTE ---
Rounds made with Dr. Bonds, no discharge today. Pt starting to have some withdrawl, Dr. Bonds discussed addiction with pt. Pt refuses any services.
--- NOTE | 2024-01-11 08:45 | P.PN_ITS ---
Progress Note: Subjective Subjective Interval history: Patient is somewhat hard to arouse this morning. Does have slight cough. No other specific complaints. Exam Constitutional Vital Signs, click to edit/add: Last Vital Signs Temp 97.9 F 01/11/24 04:37 Pulse 101 H 01/11/24 08:00 Resp 33 H 01/11/24 07:50 BP 127/77 01/11/24 07:24 Pulse Ox 96 01/11/24 07:24 O2 Del Method Room Air 01/11/24 05:18 Common normals: no apparent distress, oriented x3, alert and well nourished General appearance: cooperative Orientation/consciousness: Yes awake HENMT Common normals: normocephalic, hearing grossly normal bilaterally and external nose normal Eye Common normals: PERRL, EOMs intact bilaterally, conjunctivae normal and no scleral icterus Alignment: alignment normal Neck & C-Spine Common normals: full ROM, supple and no JVD Chest Common normals: inspection of chest normal Respiratory Common normals: normal respiratory effort, no retractions, no use of accessory muscles and clear to auscultation bilaterally Effort & inspection: able to speak in complete sentences Auscultation: diminished lung sounds (BLL) Cardio Common normals: no JVD, regular rate, regular rhythm and S2 normal heart sound GI Common normals: Normal to inspection, nondistended, normoactive bowel sounds present, soft to palpation and non-tender Palpation: soft and no hepatosplenomegaly Bladder/kidney exam: bladder normal to palpation Back & Pelvis Common normals: thoracic and lumbar spine normal to inspection Extremity Common normals: normal capillary refill and no pedal edema General: normal exam except as noted; no clubbing and no cyanosis Neuro Oh Coma Scale: GCS not evaluated Common normals: CN's II-XII intact bilaterally, moves all extremities, no focal motor deficits and no sensory deficits noted Sensorium/orientation: not alert Speech: speech normal Motor exam: strength 5/5 throughout Psych Common normals: mental status grossly normal, thought process normal and activity/motor behavior normal Mood and affect: flat affect Insight: fair Judgement: fair Progress Note: Objective Labs Labs: Short CBC 01/10/24 01/11/24 Range/Units 12:15 04:32 WBC 12.1 H 13.9 H (4.0-11.0) 10^3/uL Hgb 13.2 L 12.6 L (14.0-18.0) g/dL Hct 35.2 L 34.8 L (42.0-54.0) % Plt Count 211 270 (150-450) 10^3/uL BMP 01/10/24 01/10/24 01/10/24 12:15 17:00 21:36 Sodium 115 L* 126 L 125 L Potassium 2.6 L* 2.9 L* 2.7 L* Chloride 78 L* 91 L 92 L Carbon Dioxide 25.9 22.2 22.4 BUN 2.0 L 3.0 L 5.0 L Creatinine 0.40 L 0.37 L 0.42 L Glucose 75 61 L 92 Calcium 7.9 L 7.5 L 7.7 L 01/11/24 01/11/24 01:25 04:32 Sodium 129 L 128 L Potassium 2.8 L* 3.0 L Chloride 94 L 94 L Carbon Dioxide 23.1 22.4 BUN 3.0 L 3.0 L Creatinine 0.36 L 0.43 L Glucose 80 82 Calcium 7.6 L 7.8 L Liver Function 01/10/24 01/11/24 Range/Units 12:15 04:32 Total Bilirubin 1.0 0.7 (0.2-1.0) mg/dL Direct Bilirubin 0.4 H (0.0-0.2) mg/dL AST 135 H 107 H (15-37) U/L ALT 60 56 (16-63) U/L Alkaline Phosphatase 108 99 (46-116) U/L Albumin 2.2 L 2.0 L (3.4-5.0) g/dL Urine 01/10/24 Range/Units 11:45 Urine Color Lt. yellow (YELLOW) Urine Clarity Clear (CLEAR) Urine pH 6.5 (5.0-9.0) Ur Specific [place] <=1.005 A (1.005-1.025) Urine Protein Negative (NEG/TRACE) mg/dL Urine Glucose (UA) Negative (NEGATIVE) mg/dL Progress Note: A&P Assessment and Plan (1) Hyponatremia: (2) Hypokalemia: (3) Dehydration: (4) COVID-19: (5) Pneumonia: Qualifiers: Aspiration pneumonia type: unspecified Laterality: bilateral Lung location: lower lobe of lung Pneumonia type: aspiration pneumonia Qualified Code(s): J69.0 - Pneumonitis due to inhalation of food and vomit (6) Abnormal liver enzymes: (7) Frequent falls: (8) Tobacco dependence: (9) ETOH abuse: (10) Anxiety: (11) HTN (hypertension): (12) Chronic back pain: Plan (1) respiratory distress, tachycardia, hyponatremia: Improved somewhat today. Will adjust IV fluids today. Continue with fluid resuscitation. Does have pepper rological changes but I think this is more related to his alcohol abuse (2) Hypokalemia: Adjust supplementation IV boluses and oral (3) Dehydration: Continue with hydration as above (4) COVID-19: Outside of the window to treat with Paxlovid. Supportive care. (5) Pneumonia: Continue with IV antibiotics. White blood cell count is elevated, consider adjusting medications (6) Abnormal liver enzymes:-Continue to follow, check on ammonia level and amylase and lipase (7) Frequent falls: PT eval (8) Tobacco dependence: Nicotine as needed (9) ETOH abuse: On CIWA scale. Added phenobarbital [id number]. Patient starting to have some withdrawal symptoms's (10) Anxiety: As above (11) HTN (hypertension): Stable, continue to follow With altered mental status persisting and withdrawal symptoms deteriorating, adding additional medication, keep patient inpatient status. Likely here at least 2 more days. I may review repeat that 2 days sentiment on a daily basis until documentation of improvement or stability
[2024-01-11] MEDS: POTASSIUM CHLORIDE 40 MEQ in 0.9 % SODIUM CHLORIDE 250 ML 67.5 MEQ IV (08:46)
[2024-01-11 09:15] LABS: Amylase 34 U/L (25-115)
[2024-01-11 09:17] LABS: Ammonia 27 umol/L (11-32)
--- NOTE | 2024-01-11 09:27 | SWNOTE1 ---
SW received email back from Eva in pt financial, she reached out to pt's mother and spoke to her about HCAP forms and let pt's mother know to call her with any further questions.
[2024-01-11] MEDS: PANTOPRAZOLE SODIUM 40 MG VIAL IV (09:51)
[2024-01-11 11:38] LABS: Anion Gap 12.9; Calcium 7.8 mg/dL (8.5-10.1); Carbon Dioxide 23.5 mmol/L (21.0-32.0); Chloride 95 mmol/L (98-107); Estimated GFR (African America >60 (>=60); Estimated GFR (Non-African Ame >60 (>=60); Glucose 108 mg/dL (74-106); Potassium 3.4 mmol/L (3.5-5.1); Sodium 128 mmol/L (136-145)
[2024-01-11] MEDS: PHENobarbitaL 32.4 MG TABLET PO ×2 (13:14→21:15)
[2024-01-11] MEDS: NICOTINE 21 MG PATCH.TD24 TD (15:56)
[2024-01-11 17:28] LABS: Anion Gap 10.4; BUN Creatinine Ratio 4.4; Calcium 7.9 mg/dL (8.5-10.1); Chloride 100 mmol/L (98-107); Estimated GFR (African America >60 (>=60); Estimated GFR (Non-African Ame >60 (>=60); Glucose 123 mg/dL (74-106); Potassium 3.4 mmol/L (3.5-5.1); Sodium 132 mmol/L (136-145)
[2024-01-11] MEDS: OXYCODONE HCL 5 MG TABLET PO (20:51)
[2024-01-11] MEDS: VERAPAMIL HCL ER 240 MG TABLET PO (20:53)
[2024-01-11 23:43] LABS: Anion Gap 12.2; Blood Urea Nitrogen <1.0 mg/dL (7.0-18.0); Calcium 7.8 mg/dL (8.5-10.1); Carbon Dioxide 23.9 mmol/L (21.0-32.0); Chloride 99 mmol/L (98-107); Estimated GFR (African America >60 (>=60); Estimated GFR (Non-African Ame >60 (>=60); Glucose 101 mg/dL (74-106); Potassium 3.1 mmol/L (3.5-5.1); Sodium 132 mmol/L (136-145)
[2024-01-12] VITALS (30 sets, daily range): BP systolic 101–111; BP diastolic 59–70; PULSE 65–94; RESP 19–51; TEMP 36.6; O2SAT 80–94
[2024-01-12 04:33] LABS: Basophils Absolute Auto 0.1 10^3/uL (0.0-0.1); Basophils Percent Auto 0.4 % (0.2-2.0); Eosinophils Absolute Auto 0.2 10^3/uL (0.0-0.7); Eosinophils Percent Auto 1.2 % (0.9-7.0); Hematocrit 33.7 % (42.0-54.0); Immature Granulocytes Abs Auto 0.17 10^3/uL (0.00-0.03); Immature Granulocytes Pct Auto 1.4 % (0.0-0.5); Lymphocytes Absolute Auto 1.9 10^3/uL (1.2-3.8); Lymphocytes Percent Auto 15.5 % (20.5-60.0); Mean Corpuscular HGB Conc 35.6 g/dL (29.9-35.2); Mean Corpuscular Hemoglobin 34.2 pg (25.9-34.0); Mean Platelet Volume 9.5 fL (9.5-13.5); Monocytes Absolute Auto 0.9 10^3/uL (0.3-0.8); Monocytes Percent Auto 7.4 % (1.7-12.0); Neutrophils Absolute Auto 9.2 10^3/uL (1.4-6.5); Neutrophils Percent Auto 74.1 % (43.0-75.0); Platelet Count 257 10^3/uL (150-450); Red Blood Count 3.51 10^6/uL (4.70-6.10); Red Cell Distribution Width 11.9 % (11.0-15.0); White Blood Count 12.4 10^3/uL (4.0-11.0)
[2024-01-12 04:44] LABS: Ammonia 15 umol/L (11-32)
[2024-01-12 04:51] LABS: Alanine Aminotransferase 57 U/L (16-63); Albumin Globulin Ratio 0.5; Albumin Level 1.8 g/dL (3.4-5.0); Alkaline Phosphatase 93 U/L (46-116); Anion Gap 10.4; Aspartate Amino Transferase 70 U/L (15-37); BUN Creatinine Ratio 2.9; Bilirubin Total 0.5 mg/dL (0.2-1.0); Blood Urea Nitrogen <1.0 mg/dL (7.0-18.0); Calcium 7.8 mg/dL (8.5-10.1); Carbon Dioxide 26.6 mmol/L (21.0-32.0); Chloride 98 mmol/L (98-107); Estimated GFR (African America >60 (>=60); Estimated GFR (Non-African Ame >60 (>=60); Globulin 3.6 g/dL; Glucose 103 mg/dL (74-106); Sodium 132 mmol/L (136-145); Total Protein 5.4 g/dL (6.4-8.2)
[2024-01-12] MEDS: HEPARIN SODIUM (PORCINE) 5,000 UNIT/ML VIAL 5000 UNIT SUBQ (05:29)
[2024-01-12] MEDS: PHENobarbitaL 32.4 MG TABLET PO (05:29)
[2024-01-12] MEDS: PIPERACILLIN SODIUM/TAZOBACTAM 3.375 GM in 0.9 % SODIUM CHLORIDE 50 ML IV (05:29)
[2024-01-12] MEDS: GUAIFENESIN 600 MG TAB.ER.12H PO (08:21)
[2024-01-12] MEDS: FOLIC ACID 1 MG TABLET PO (08:21)
[2024-01-12] MEDS: PANTOPRAZOLE SODIUM 40 MG VIAL IV (08:21)
[2024-01-12] MEDS: THIAMINE MONONITRATE (VIT B1) 100 MG TABLET PO (08:21)
[2024-01-12] MEDS: MULTIVITAMIN TABLET 1 TAB PO (08:21)
[2024-01-12] MEDS: POTASSIUM CHLORIDE 10 MEQ ER TABLET 40 MEQ PO (08:22)
[2024-01-12] MEDS: POTASSIUM CHLORIDE 10 MEQ ER TABLET 20 MEQ PO (08:22)
--- NOTE | 2024-01-12 09:09 | PM.DS1 ---
DS: Providers Provider Date of admission: 01/10/24 13:55 Primary care physician: Cristóbal Reyna DO Consults: 01/10/24 Consult to Dietitian Routine Reason For Exam: poor appetite Reason for consultation: poor appetite Has provider been notified: No Consult to Nuclear Monitoring Technician Routine Reason for consult:: Financial Concerns 01/10/24 13:31 Occupational Therapy Eval and Treat Routine Reason for consultation: Ambulatory dysfunction/weakness Physical Therapy Eval and Treat Routine Reason for consultation: Ambulatory dysfunction/weakness DS: Diagnosis Discharge Diagnosis (1) Hyponatremia: (2) Hypokalemia: (3) Dehydration: (4) COVID-19: (5) Pneumonia: Qualifiers: Aspiration pneumonia type: unspecified Laterality: bilateral Lung location: lower lobe of lung Pneumonia type: aspiration pneumonia Qualified Code(s): J69.0 - Pneumonitis due to inhalation of food and vomit (6) Abnormal liver enzymes: (7) Frequent falls: (8) Tobacco dependence: (9) ETOH abuse: (10) Anxiety: (11) HTN (hypertension): (12) Chronic back pain: DS: Summary Hospital Course Hospital Course: Patient was admitted with significant hyponatremia sodium less than 120. This is felt most likely related to alcohol abuse. Labs were obtained to look for other causes of sodium loss. Patient also tested positive for COVID-19 and had a slight cough but nothing really progressive. With the hydration his sodium and improved. Not quite back to baseline but patient feels much improved. None at this point he will be discharged home. Encouraged to no longer drink. This seems unlikely as patient is unmotivated for sobriety. Encouraged to maintain hydration. This point patient be discharged home in improving condition. Medications see list. Follow-up with PCP within the next week. Time Spent with Patient Time attestation: Total time spent providing and/or coordinating discharge services: Exam Constitutional Vital Signs, click to edit/add: Last Vital Signs Temp 98 F 01/12/24 07:56 Pulse 65 01/12/24 07:56 Resp 31 H 01/12/24 07:50 BP 101/59 01/12/24 07:41 Pulse Ox 94 L 01/12/24 07:41 O2 Del Method Room Air 01/12/24 07:56 Common normals: no apparent distress, oriented x3, alert and well nourished General appearance: cooperative Orientation/consciousness: Yes awake HENMT Common normals: normocephalic, hearing grossly normal bilaterally and external nose normal Eye Common normals: PERRL, EOMs intact bilaterally, conjunctivae normal and no scleral icterus Alignment: alignment normal Neck & C-Spine Common normals: full ROM, supple and no JVD Chest Common normals: inspection of chest normal Respiratory Common normals: normal respiratory effort, no retractions, no use of accessory muscles and clear to auscultation bilaterally Effort & inspection: able to speak in complete sentences Auscultation: diminished lung sounds (BLL) Cardio Common normals: no JVD, regular rate, regular rhythm and S2 normal heart sound GI Common normals: Normal to inspection, nondistended, normoactive bowel sounds present, soft to palpation and non-tender Palpation: soft and no hepatosplenomegaly Bladder/kidney exam: bladder normal to palpation Back & Pelvis Common normals: thoracic and lumbar spine normal to inspection Extremity Common normals: normal capillary refill and no pedal edema General: normal exam except as noted; no clubbing and no cyanosis Neuro [place] Coma Scale: GCS not evaluated Common normals: CN's II-XII intact bilaterally, moves all extremities, no focal motor deficits and no sensory deficits noted Sensorium/orientation: not alert Speech: speech normal Motor exam: strength 5/5 throughout Psych Common normals: mental status grossly normal, thought process normal and activity/motor behavior normal Mood and affect: flat affect Insight: fair Judgement: fair DS: Data Data Completed and Pending Labs on day of discharge: Labs from last 24 hours 01/12/24 01/11/24 01/11/24 04:20 23:19 16:55 WBC 12.4 H RBC 3.51 L Hgb 12.0 L Hct 33.7 L MCV 96.0 H MCH 34.2 H MCHC 35.6 H RDW 11.9 Plt Count 257 MPV 9.5 Neut % (Auto) 74.1 Lymph % (Auto) 15.5 L K[place]t % (Auto) 7.4 Eos % (Auto) 1.2 Baso % (Auto) 0.4 Neut # (Auto) 9.2 H Lymph # (Auto) 1.9 Knott # (Auto) 0.9 H Eos # (Auto) 0.2 Baso # (Auto) 0.1 Abs Immat Gran (auto) 0.17 H Imm/Tot Granulo (auto) 1.4 H Sodium 132 L 132 L 132 L Potassium 3.0 L 3.1 L 3.4 L Chloride 98 99 100 Carbon Dioxide 26.6 23.9 25.0 Anion Gap 10.4 12.2 10.4 BUN <1.0 L <1.0 L 2.0 L Creatinine 0.35 L 0.33 L 0.45 L Est GFR ( Amer) >60 >60 >60 Est GFR (Non-Af Amer) >60 >60 >60 BUN/Creatinine Ratio 2.9 3.0 4.4 Glucose 103 101 123 H Calcium 7.8 L 7.8 L 7.9 L Total Bilirubin 0.5 AST 70 H ALT 57 Alkaline Phosphatase 93 Ammonia 15 Total Protein 5.4 L Albumin 1.8 L Globulin 3.6 Albumin/Globulin Ratio 0.5 Amylase Lipase 01/11/24 01/11/24 11:00 08:53 WBC RBC Hgb Hct MCV MCH MCHC RDW Plt Count MPV Neut % (Auto) Lymph % (Auto) [place]nott % (Auto) Eos % (Auto) Baso % (Auto) Neut # (Auto) Lymph # (Auto) Knott # (Auto) Eos # (Auto) Baso # (Auto) Abs Immat Gran (auto) Imm/Tot Granulo (auto) Sodium 128 L Potassium 3.4 L Chloride 95 L Carbon Dioxide 23.5 Anion Gap 12.9 BUN 3.0 L Creatinine 0.43 L Est GFR ( Amer) >60 Est GFR (Non-Af Amer) >60 BUN/Creatinine Ratio 7.0 Glucose 108 H Calcium 7.8 L Total Bilirubin AST ALT Alkaline Phosphatase Ammonia 27 Total Protein Albumin Globulin Albumin/Globulin Ratio Amylase 34 Lipase 44.0 Discharge Plan Discharge Disposition: Home, Self-Care Condition: Fair Discharge Medications: New amoxicillin-pot clavulanate 875-125 mg tablet 1 tab PO Q12H Qty: 20 0RF Continued verapamil 240 mg tablet extended release 240 mg PO .qd buspirone 10 mg tablet 10 mg PO DAILY gabapentin 100 mg capsule 100 mg PO .qhs gabapentin 300 mg capsule 300 mg PO QAM Activity: increase activity as tolerated Diet: advance to your usual diet Patient Instructions: Aspiration Pneumonia (DC), Abuse of Alcohol (GEN), Alcohol Withdrawal (DC), Alcohol Withdrawal (GEN) Forms: Portal Instructions Follow Up Appointments: Call Dr Reyna office for follow up appt within 1 week - we attempted to schedule twice. Discharge Date/Time: 01/12/24 10:56
--- NOTE | 2024-01-12 09:24 | CM.NOTE ---
Rounds made with Dr. Bonds, discussed with pt discharge to home today. Pt refuses any discharge resources for addiction.
--- NOTE | 2024-01-12 10:42 | PC.NURSE ---
2 attempts made to schedule hospital follow up with dr cadena. message left at office. mother at bedside, aware of need for follow up appt. iv dc'd, assisted pt with getting dressed. dc instructions given to pt and mother as well as rehab and recovery information per SS. taken to exit via wheelchair, discharged to private vehicle.
[2024-01-12 15:08] LABS: Cortisol - AM 22.1 ug/dL (6.2-19.4)
[2024-01-13 07:08] LABS: Osmolality, Urine 100 mOsmol/kg (.)
== END 2024-01-12 10:56 | disposition home or self-care (01) | DRG 640 ==
LOC: ER 13:33 → ICU 13:55
PROVIDERS: Family Medicine; Nurse Practitioner; Admitting Provider Internal Medicine; Emergency Provider Emergency Medicine; PCP Family Medicine; Visit Provider Internal Medicine
DX: E87.1 Hypo-osmolality and hyponatremia (principal); J69.0 Pneumonitis due to inhalation of food and vomit; U07.1 COVID-19; E87.6 Hypokalemia; I10 Essential (primary) hypertension; F10.10 Alcohol abuse, uncomplicated; F41.9 Anxiety disorder, unspecified; F17.210 Nicotine dependence, cigarettes, uncomplicated; E86.0 Dehydration; G89.29 Other chronic pain; M54.9 Dorsalgia, unspecified; Z91.81 History of falling; Z79.899 Other long term (current) drug therapy; R79.89 Other specified abnormal findings of blood chemistry; R06.03 Acute respiratory distress; Y90.0 Blood alcohol level of less than 20 mg/100 ml
CPT/HCPCS: 36415; 70450; 71045; 72125; 80048; 80053; 80076; 80307; 80320; 81001; 82140; 82150; 82533; 83605; 83690; 83735; 83930; 83935; 84100; 84145; 84300; 84443; 84484; 85025; 85610; 85730; 87040; 87070; 87804; 87811; 90471; 90715; 93005; 94667; 94668; 94761; 96361; 96365; 96366; 96367; 96368; 96372; 96375; 96376; 97161; 97165; 97535; 99285; J2543; J3480